=== PATIENT | female | born 1995 | race Caucasian/White ===

== ENCOUNTER 2019-03-11 20:52 | Emergency (ER) | payer BC ==
[2019-03-11] MEDS ORDERED: MORPHINE 4 MG/ML SYR ONE ×2 (21:39→23:49)
[2019-03-11] MEDS ORDERED: ONDANSETRON 4 MG/2 ML VIAL ONE (21:39)
[2019-03-11 21:54] LABS: Absolute Lymphocytes (CBC) 2.9 K/uL (0.7-4.9); Albumin 4.3 g/dL (3.4-5.0); Basophils % 0.7 % (0-1.3); Bilirubin Direct 0.1 mg/dL (0-0.2); Bilirubin Total 0.5 mg/dL (0.2-1.0); Hematocrit 41.8 % (36.0-45.0); Lymphocytes % 25.4 % (15.3-44.8); MPV 9.5 fL (7.6-11.3); Potassium 3.8 mmol/L (3.5-5.1); Protein, Total 8.2 g/dL (6.4-8.2); RBC Red Blood Cell Count 5.09 M/uL (3.86-4.86)
[2019-03-11 22:07] LABS: Urine Blood TRACE (NEG); Urine Glucose TRACE (NEG); Urine Protein 2+ (NEG); Urine Specific Gravity >1.030 (1.005-1.030); Urine pH 5.5 (5.0-7.0)
[2019-03-11] MEDS ORDERED: PROMETHAZINE 25 MG/ML VIAL ONE ×2 (22:14→23:48)
--- NOTE | 2019-03-11 23:34 | EDPHYS ---
Physician Documentation [facility] Name: Sharron Reyes Age: 23 yrs Sex: Female : 1995 Arrival Date: 03/11/2019 Time: 20:56 Bed 23 Private MD: ED Physician Ace Roldan HPI: 03/11 21:52 This 23 yrs old Female presents to ER via Ambulatory with complaints of jr8 Abdominal Pain. 21:52 The patient presents with abdominal pain in the upper abdomen. Onset: The jr8 symptoms/episode began/occurred acutely, today. The symptoms do not radiate. Associated signs and symptoms: Pertinent positives: nausea. The symptoms are described as sharp. Modifying factors: The symptoms are alleviated by nothing, the symptoms are aggravated by nothing. Severity of pain: At its worst the pain was moderate in the emergency department the pain is unchanged. The patient has not experienced similar symptoms in the past. The patient has not recently seen a physician. 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 - Social history:: Smoking status: Patient/guardian denies using tobacco. - Ebola Screening: : No symptoms or risks identified at this time. ROS: 21:52 Eyes: Negative for injury, pain, redness, and discharge, ENT: Negative for injury, jr8 pain, and discharge, Neck: Negative for injury, pain, and swelling, Cardiovascular: Negative for chest pain, palpitations, and edema, Respiratory: Negative for shortness of breath, cough, wheezing, and pleuritic chest pain, Back: Negative for injury and pain, MS/Extremity: Negative for injury and deformity, Skin: Negative for injury, rash, and discoloration, Neuro: Negative for headache, weakness, numbness, tingling, and seizure. 21:52 Abdomen/GI: Positive for abdominal pain, nausea, Negative for vomiting, diarrhea, abdominal distension, anorexia, dysphagia, hematemesis, black/tarry stool, rectal pain, rectal bleeding, bowel incontinence, flatulence. Exam: 21:52 Eyes: Pupils equal round and reactive to light, extra-ocular motions intact. Lids and jr8 lashes normal. Conjunctiva and sclera are non-icteric and not injected. Cornea within normal limits. Periorbital areas with no swelling, redness, or edema. ENT: Nares patent. No nasal discharge, no septal abnormalities noted. Tympanic membranes are normal and external auditory canals are clear. Oropharynx with no redness, swelling, or masses, exudates, or evidence of obstruction, uvula midline. Mucous membranes moist. Neck: Trachea midline, no thyromegaly or masses palpated, and no cervical lymphadenopathy. Supple, full range of motion without nuchal rigidity, or vertebral point tenderness. No Meningismus. Cardiovascular: Regular rate and rhythm with a normal S1 and S2. No gallops, murmurs, or rubs. Normal PMI, no JVD. No pulse deficits. Respiratory: Lungs have equal breath sounds bilaterally, clear to auscultation and percussion. No rales, rhonchi or wheezes noted. No increased work of breathing, no retractions or nasal flaring. Back: No spinal tenderness. No costovertebral tenderness. Full range of motion. Skin: Warm, dry with normal turgor. Normal color with no rashes, no lesions, and no evidence of cellulitis. MS/ Extremity: Pulses equal, no cyanosis. Neurovascular intact. Full, normal range of motion. Neuro: Awake and alert, GCS 15, oriented to person, place, time, and situation. Cranial nerves II-XII grossly intact. Motor strength 5/5 in all extremities. Sensory grossly intact. Cerebellar exam normal. Normal gait. 21:52 Abdomen/GI: Inspection: abdomen appears normal, Bowel sounds: active, all quadrants, Palpation: soft, in all quadrants, moderate abdominal tenderness, in the epigastric area, right upper quadrant and left upper quadrant, mass, is not appreciated, rebound tenderness, is not appreciated, voluntary guarding, is not appreciated, involuntary guarding, is not appreciated, no appreciated organomegaly, Indicators: McBurney's point is not tender, Meredith's sign is negative, Rovsing's sign is negative, Liver: tenderness, is not appreciated. Vital Signs: 21:02 Weight 106.59 kg; Height 5 ft. 7 in. (170.18 cm); la1 21:02 Pulse 102; Resp 16; Temp 98.1; Pulse Ox 100% on R/A; la1 21:04 BP 147 / 78; la1 21:02 Body Mass Index 36.81 (106.59 kg, 170.18 cm) la1 MDM: 21:19 Patient medically screened. [facility] 23:31 Data reviewed: vital signs, nurses notes, lab test result(s), radiologic studies, CT jr8 scan. Data interpreted: Pulse oximetry: on room air is 100 %. Interpretation: normal. Counseling: I had a detailed discussion with the patient and/or guardian regarding: the historical points, exam findings, and any diagnostic results supporting the discharge/admit diagnosis, lab results, radiology results, the need for outpatient follow up, a family practitioner, to return to the emergency department if symptoms worsen or persist or if there are any questions or concerns that arise at home. Response to treatment: the patient's symptoms have markedly improved after treatment, patient is well hydrated. 23:31 Special discussion: Based on the patient's Hx, exam, and Dx evaluation, there is no [facility] indication for emergent surgery or inpatient Tx. It is understood by the patient/guardian that if the Sx's persist or worsen they need to return immediately for re-evaluation. 03/11 21:19 Order name: Basic Metabolic Panel; Complete Time: 21:57 [facility] 03/11 21:19 Order name: CBC with Diff; Complete Time: 21:57 [facility] 03/11 21:19 Order name: Creatinine for Radiology; Complete Time: 21:53 [facility] 03/11 21:19 Order name: Hepatic Function; Complete Time: 21:57 [facility] 03/11 21:19 Order name: Lipase; Complete Time: 21:57 [facility] 03/11 21:26 Order name: Urine Dipstick--Ancillary (enter results) [facility] 03/11 21:19 Order name: IV Saline Lock; Complete Time: 21:41 [facility] 03/11 21:26 Order name: Urine --Ancillary (enter results) [facility] 03/11 21:48 Order name: CT Abd/Pelvis - IV Contrast Only [facility] 03/11 21:19 Order name: Labs collected and sent; Complete Time: 21:41 [facility] Administered Medications: 21:41 Drug: morphine 4 mg Route: IVP; Site: right antecubital; co1 22:19 Follow up: Response: No adverse reaction; Pain is decreased la1 21:41 Drug: Zofran 4 mg Route: IVP; Site: right antecubital; la1 22:20 Follow up: Response: No adverse reaction la1 22:19 Drug: Phenergan 12.5 mg Route: IVP; Site: right antecubital; la1 23:46 Drug: Promethazine 12.5 mg Route: IVP; Site: right antecubital; tr5 03/12 00:12 Follow up: Response: Marked relief of symptoms tr5 03/11 23:56 Drug: morphine 4 mg {Note: RASS:0.} Route: IVP; Site: right antecubital; tr5 03/12 00:11 Follow up: Response: Medication administered at discharge. tr5 Disposition: 04:18 Co-signature as Attending Physician, Ace Roldan MD I agree with the assessment and tw4 plan of care. Disposition: 03/11/19 23:32 Discharged to Home. Impression: Acute Enteritis. - Condition is Stable. - Discharge Instructions: Nausea and Vomiting, Adult, Viral Gastroenteritis, Adult. - Prescriptions for Bentyl 20 mg Oral Tablet - take 1 tablet by ORAL route every 6 hours As needed; 20 tablet. promethazine 25 mg Oral Tablet - take 1 tablet by ORAL route every 6 hours As needed; 20 tablet. - Medication Reconciliation Form, Thank You Letter, Antibiotic Education, Prescription Opioid Use form. - Follow up: Private Physician; When: 2 - 3 days; Reason: Recheck today's complaints, Continuance of care, Re-evaluation by your physician. - Problem is new. - Symptoms have improved. Signatures: Dispatcher [employer] EDME Edis Soni PA PA jr8 Frederick Rodriguez RN RN la1 Ace Roldan MD MD tw4 Jonas Vega RN RN tr5 Corrections: (The following items were deleted from the chart) 00:14 03/11 23:32 03/11/2019 23:32 Discharged to Home. Impression: Acute Enteritis. Condition tr5 is Stable. Forms are Medication Reconciliation Form, Thank You Letter, Antibiotic Education, Prescription Opioid Use. Follow up: Private Physician; When: 2 - 3 days; Reason: Recheck today's complaints, Continuance of care, Re-evaluation by your physician. Problem is new. Symptoms have improved. jr8
--- NOTE | 2019-03-11 23:34 | ER ---
Nurse's Notes [facility] Name: Sharron Reyes Age: 23 yrs Sex: Female : 1995 Arrival Date: 03/11/2019 Time: 20:56 Bed 23 Private MD: Diagnosis: Acute Enteritis Presentation: 03/11 21:03 Presenting complaint: Patient states: abd pain since yesterday, reports diarrhea. la1 Transition of care: patient was not received from another setting of care. Onset of symptoms was March 11, 2019. Risk Assessment: Do you want to hurt yourself or someone else? Patient reports no desire to harm self or others. Initial Sepsis Screen: Does the patient meet any 2 criteria? No. Patient's initial sepsis screen is negative. Does the patient have a suspected source of infection? No. Patient's initial sepsis screen is negative. Care prior to arrival: None. 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 - Social history:: Smoking status: Patient/guardian denies using tobacco. - Ebola Screening: : No symptoms or risks identified at this time. Screenin:42 Abuse screen: Denies threats or abuse. Abuse screen: Denies threats or abuse. la1 Nutritional screening: No deficits noted. Tuberculosis screening: No symptoms or risk factors identified. Fall Risk None identified. Assessment: 21:41 General: Appears in no apparent distress. Behavior is calm, cooperative. Pain: la1 Complains of pain in epigastric area, right upper quadrant and left upper quadrant. Neuro: Level of Consciousness is awake, alert, obeys commands, Oriented to person, place, time, situation. Cardiovascular: Capillary refill < 3 seconds Patient's skin is warm and dry. Respiratory: Airway is patent Respiratory effort is even, unlabored, Respiratory pattern is regular, symmetrical, Breath sounds are clear bilaterally. GI: Abdomen is non-distended, obese, Bowel sounds present X 4 quads. Abd is soft X 4 quads Abdomen is tender to palpation in epigastric area, right upper quadrant and left upper quadrant. Vital Signs: 21:02 Weight 106.59 kg; Height 5 ft. 7 in. (170.18 cm); la1 21:02 Pulse 102; Resp 16; Temp 98.1; Pulse Ox 100% on R/A; la1 21:04 BP 147 / 78; la1 21:02 Body Mass Index 36.81 (106.59 kg, 170.18 cm) la1 ED Course: 20:56 Patient arrived in ED. cf2 21:04 Triage completed. la1 21:04 Arm band placed on right wrist. la1 21:07 Ace Roldan MD is Attending Physician. tw4 21:07 Edis Soni PA is PHCP. jr8 21:23 Frederick Rodriguez, DOMO is Primary Nurse. la1 21:41 No provider procedures requiring assistance completed. Inserted saline lock: 18 gauge la1 in right antecubital area, using aseptic technique. Blood collected. 21:42 Patient has correct armband on for positive identification. la1 22:44 CT Abd/Pelvis - IV Contrast Only In Process Unspecified. EDMS 03/12 00:10 Patient did not have IV access during this emergency room visit. tr5 Administered Medications: 03/11 21:41 Drug: morphine 4 mg Route: IVP; Site: right antecubital; la1 22:19 Follow up: Response: No adverse reaction; Pain is decreased la1 21:41 Drug: Zofran 4 mg Route: IVP; Site: right antecubital; la1 22:20 Follow up: Response: No adverse reaction la1 22:19 Drug: Phenergan 12.5 mg Route: IVP; Site: right antecubital; la1 23:46 Drug: Promethazine 12.5 mg Route: IVP; Site: right antecubital; tr5 03/12 00:12 Follow up: Response: Marked relief of symptoms tr5 03/11 23:56 Drug: morphine 4 mg {Note: RASS:0.} Route: IVP; Site: right antecubital; tr5 03/12 00:11 Follow up: Response: Medication administered at discharge. tr5 Outcome: 03/11 23:32 Discharge ordered by . jr8 03/12 00:10 Discharged to home via wheelchair, with family. tr5 Condition: stable Discharge instructions given to patient, family, Instructed on discharge instructions, follow up and referral plans. medication usage, Demonstrated understanding of instructions, follow-up care, medications, Prescriptions given X 2. 00:14 Patient left the ED. tr5 Signatures: Dispatcher [employer] EDMS Edis Soni PA PA jr8 Frederick Rodriguez RN RN la1 Ace Roldan MD MD tw4 Jonas Vega RN RN tr5 Emily Bravo 2
[2019-03-12 02:49] VITALS: TEMP 98.1; O2SAT 100
[2019-03-12 02:50] VITALS: BP 147/78
--- OUTSIDE RECORDS SUMMARY | 2019-03-12 07:20 | XMS REPORT ---
:1995 Author Organization eClinicalWorks Care Team Providers Name Role Phone NyeReva osborney Provider Role Unavailable Allergies, Adverse Reactions, Alerts Substance Reaction Event Type Saxenda diarrhea Drug Allergy Contrave migraine CONRAD's Drug Allergy Wellbutrin CONRAD's Drug Allergy Problems Problem Type Condition Code Onset Dates Condition Status Problem Primary insomnia F51.01 Active Problem Encounter for surveillance of Z30.46 Active implantable subdermal contraceptive Problem Depression F32.9 Active Assessment Fatigue, unspecified type R53.83 Active Assessment Abdominal pain, LUQ R10.12 Active Problem Obesity (BMI 35.0-39.9 without E66.9 Active comorbidity) Assessment Primary insomnia F51.01 Active Medications Medication Code Code Instructions Start End Date Status Dosage System Date Multivitamin [facility] 99908123637 - Orally Active not Adult defined Results No Known Results Summary Purpose eClinicalWorks Submission
--- OUTSIDE RECORDS SUMMARY | 2019-03-12 07:20 | XMS REPORT ---
:1995 Author Organization eClinicalWorks Care Team Providers Name Role Phone Oneyda Rios Provider Role Unavailable Allergies No Known Allergies Problems Problem Type Condition Code Onset Dates Condition Status Problem Primary insomnia F51.01 Active Problem Encounter for surveillance of Z30.46 Active implantable subdermal contraceptive Problem Depression F32.9 Active Problem Obesity (BMI 35.0-39.9 without E66.9 Active comorbidity) Medications Medication Code Code Instructions Start End Status Dosage System Date Date Levothyroxine [facility] 63868498500 25 MCG Orally July Active 1 tablet Sodium Once a day 2017 on an empty stomach in the morning Results No Known Results Summary Purpose eClinicalWorks Submission
--- OUTSIDE RECORDS SUMMARY | 2019-03-12 07:21 | XMS REPORT ---
:1995 Author Organization eClinicalWorks Care Team Providers Name Role Phone LaramieReva osborney Provider Role Unavailable Allergies No Known Allergies Problems Problem Type Condition Code Onset Dates Condition Status Problem Obesity (BMI 35.0-39.9 without E66.9 Active comorbidity) Problem Encounter for surveillance of Z30.46 Active implantable subdermal contraceptive Problem Generalized abdominal pain R10.84 Active Problem PCOS (polycystic ovarian syndrome) E28.2 Active Problem Increased thirst R63.1 Active Problem Depression F32.9 Active Problem Primary insomnia F51.01 Active Problem Acquired hypothyroidism E03.9 Active Problem Type 2 diabetes mellitus without E11.9 Active complication, without long-term current use of insulin Medications No Known Medications Results No Known Results Summary Purpose eClinicalWorks Submission
--- OUTSIDE RECORDS SUMMARY | 2019-03-12 07:21 | XMS REPORT ---
:1995 Author Organization eClinicalWorks Care Team Providers Name Role Phone Oneyda Rios Provider Role Unavailable Allergies, Adverse Reactions, Alerts Substance Reaction Event Type Saxenda diarrhea Drug Allergy Contrave migraine CONRAD's Drug Allergy Wellbutrin CONRAD's Drug Allergy Problems Problem Type Condition Code Onset Dates Condition Status Problem Primary insomnia F51.01 Active Problem Encounter for surveillance of Z30.46 Active implantable subdermal contraceptive Problem Depression F32.9 Active Assessment RUQ abdominal pain R10.11 Active Assessment Elevated glucose R73.09 Active Problem Obesity (BMI 35.0-39.9 without E66.9 Active comorbidity) Assessment Primary insomnia F51.01 Active Medications Medication Code Code Instructions Start End Status Dosage System Date Date Amitriptyline HCl [facility] 57267830562 25 MG Orally August 31, Active 1 tablet Once a day at 2018 bedtime Levothyroxine ND 45047833752 25 MCG Orally July Active 1 tablet Sodium Once a day 2017 on an empty stomach in the morning Multivitamin ND 18655674378 - Orally Active not Adult defined Results No Known Results Summary Purpose eClinicalWorks Submission
--- OUTSIDE RECORDS SUMMARY | 2019-03-12 07:21 | XMS REPORT ---
:1995 Author Organization eClinicalWorks Care Team Providers Name Role Phone Oneyda Rios Provider Role Unavailable Allergies, Adverse Reactions, Alerts Substance Reaction Event Type Saxenda diarrhea Drug Allergy Contrave migraine CONRAD's Drug Allergy Wellbutrin CONRAD's Drug Allergy Levothyroxine Sodium excessive sweating Drug Allergy Problems Problem Type Condition Code Onset Dates Condition Status Problem Obesity (BMI 35.0-39.9 without E66.9 Active comorbidity) Problem Encounter for surveillance of Z30.46 Active implantable subdermal contraceptive Assessment Upper respiratory tract infection, J06.9 Active unspecified type Assessment Cough R05 Active Problem Generalized abdominal pain R10.84 Active Problem PCOS (polycystic ovarian syndrome) E28.2 Active Problem Increased thirst R63.1 Active Problem Depression F32.9 Active Problem Primary insomnia F51.01 Active Problem Acquired hypothyroidism E03.9 Active Problem Type 2 diabetes mellitus without E11.9 Active complication, without long-term current use of insulin Medications Medication Code Code Instructions Start End Status Dosage System Date Date Nexplanon [facility] 40567387325 68 MG Active as directed Subcutaneous Multivitamin [facility] 17043905359 - Orally Active not defined Adult Pseudoeph-[place] ND 25491503371 30-2-10 MG/5ML Apr 17Apr 27, Active 10 ml as en-DM Orally Four 2017 2017 needed times a day Amitriptyline ND 33249086157 25 MG Orally Active 1 tablet HCl Once a day at bedtime [place] Thyroid ND 78010586949 60 MG Orally Active 1 tablet on Once a day an empty stomach MetFORMIN HCl ER ND 54444234351 750 MG Orally Active 1 tablet Once a day with evening meal Azithromycin ND 52770605647 250 MG Orally Apr 17Apr 22, Active 2 tablets Once a day 2017 2017 on the first day, then 1 tablet daily for 4 days Flonase ND 41451492760 50 MCG/ACT Active 2 sprays Nasally Once a each day nostril prn Results Name Result Date Reference Range Unit Abnormality Flag Rapid Strep FLU TEST ----B N [id number] ----A N [id number] Summary Purpose eClinicalWorks Submission
--- OUTSIDE RECORDS SUMMARY | 2019-03-12 07:21 | XMS REPORT ---
[...] of Z30.46 Active implantable subdermal contraceptive Assessment Increased thirst R63.1 Active Assessment Primary insomnia F51.01 Active Assessment Type 2 diabetes mellitus without E11.9 Active complication, without long-term current use of insulin Problem Generalized abdominal pain R10.84 Active Problem PCOS (polycystic ovarian syndrome) E28.2 Active Problem Increased thirst R63.1 Active Problem Depression F32.9 Active Problem Primary insomnia F51.01 Active Problem Acquired hypothyroidism E03.9 Active Problem Type 2 diabetes mellitus without E11.9 Active complication, without long-term current use of insulin Medications Medication Code Code Instructions Start End Status Dosage System Date Date MetFORMIN HCl ER ND 34644273873 750 MG Orally October 17, Active 1 tablet Once a day 2017 with evening meal Nexplanon ND 75697973644 68 MG Active as directed Subcutaneous Multivitamin ND 15123633141 - Orally Active not defined Adult [place] Thyroid ND 15141117069 60 MG Orally Active 1 tablet on Once a day an empty stomach Flonase ND 01443821067 50 MCG/ACT Active 2 sprays Nasally Once a each day nostril prn Amitriptyline ND 41186397228 25 MG Orally Active 1 tablet HCl Once a day at bedtime Results Name Result Date Reference Range Unit Abnormality Flag COMPREHENSIVE METABOLIC PANEL(CMP) ----ALBUMIN/GLOBULI 1.6 [id number] 1.0-2.5 (calc) N N RATIO ----GLOBULIN 2.9 [id number] 1.9-3.7 g/dL (calc) N ----ALKALINE 35 [id number] 33-115 U/L N PHOSPHATASE ----BILIRUBIN, 0.8 [id number] 0.2-1.2 mg/dL N TOTAL ----CHLORIDE 103 [id number] 98-110 mmol/L N ----ALT 56 [id number] 6-29 U/L H ----POTASSIUM 4.8 [id number] 3.5-5.3 mmol/L N ----AST 29 [id number] 10-30 U/L N ----SODIUM 138 [id number] 135-146 mmol/L N ----BUN/CREATININE NOT APPLICABLE 20180202 6-22 (calc) RATIO ----eGFR 143 [id number] > OR=60 mL/min/1.73 N [place] m2 ----CALCIUM 9.9 [id number] 8.6-10.2 mg/dL N ----CARBON DIOXIDE 26 [id number] 20-32 mmol/L N ----ALBUMIN 4.7 [id number] 3.6-5.1 g/dL N ----PROTEIN, TOTAL 7.6 [id number] 6.1-8.1 g/dL N ----GLUCOSE 107 [id number] 65-99 mg/dL H ----UREA NITROGEN 10 [id number] 7-25 mg/dL N (BUN) ----CREATININE 0.66 [id number] 0.50-1.10 mg/dL N ----eGFR NON-AFR. 124 [id number] > OR=60 mL/min/1.73 N [place] [address] HEMOGLOBIN A1c ----HEMOGLOBIN A1c 5.8 [id number] <5.7 % of total H Hgb Summary Purpose eClinicalWorks Submission
--- OUTSIDE RECORDS SUMMARY | 2019-03-12 07:21 | XMS REPORT ---
:1995 Author Organization eClinicalWorks Care Team Providers Name Role Phone Oneyda Rios Provider Role Unavailable Allergies No Known Allergies Problems Problem Type Condition Code Onset Dates Condition Status Problem Primary insomnia F51.01 Active Problem Depression F32.9 Active Problem Acquired hypothyroidism E03.9 Active Problem Encounter for surveillance of Z30.46 Active implantable subdermal contraceptive Problem Obesity (BMI 35.0-39.9 without E66.9 Active comorbidity) Medications Medication Code Code Instructions Start End Status Dosage System Date Date [place] Thyroid NDC 99924401095 60 MG Orally October 17, Active 1 tablet Once a day 2017 on an empty stomach MetFORMIN HCl NDC 50093396695 500 MG Orally October 17, Active 1 tablet ER Once a day 2017 with evening meal Results No Known Results Summary Purpose eClinicalWorks Submission
--- OUTSIDE RECORDS SUMMARY | 2019-03-12 07:21 | XMS REPORT ---
:1995 Author Organization eClinicalWorks Care Team Providers Name Role Phone Waldo Martin Provider Role Unavailable Allergies, Adverse Reactions, Alerts Substance Reaction Event Type Saxenda diarrhea Drug Allergy Contrave migraine CONRAD's Drug Allergy Wellbutrin [facility]'s Drug Allergy Levothyroxine Sodium excessive sweating Drug Allergy Problems Problem Type Condition Code Onset Dates Condition Status Assessment Generalized abdominal pain R10.84 Active Problem Encounter for surveillance of Z30.46 Active implantable subdermal contraceptive Assessment PCOS (polycystic ovarian syndrome) E28.2 Active Assessment Obesity (BMI 35.0-39.9 without E66.9 Active comorbidity) Problem Generalized abdominal pain R10.84 Active Problem Acquired hypothyroidism E03.9 Active Problem PCOS (polycystic ovarian syndrome) E28.2 Active Problem Primary insomnia F51.01 Active Problem Obesity (BMI 35.0-39.9 without E66.9 Active comorbidity) Problem Type 2 diabetes mellitus without E11.9 Active complication, without long-term current use of insulin Problem Depression F32.9 Active Medications Medication Code Code Instructions Start End Status Dosage System Date Date Multivitamin [facility] 77838663987 - Orally Active not defined Adult Amitriptyline ND 82207834811 25 MG Orally Active 1 tablet HCl Once a day at bedtime Nexplanon ND 86778377812 68 MG Active as directed Subcutaneous Flonase ND 87159105023 50 MCG/ACT Active 2 sprays Nasally Once a each day nostril prn [place] Thyroid ND 72322944861 30 MG Orally October 03, Active 1 tablet on Once a day 2017 an empty stomach Levonorgestrel-E [facility] 66278846256 0.1-20 MG-MCG Active 1 tablet thinyl Estrad Orally Once a day [place] Thyroid [facility] 32085910477 60 MG Orally October 17, Active 1 tablet on Once a day 2017 an empty stomach MetFORMIN HCl ER ND 69625800058 500 MG Orally October 17, Active 1 tablet Once a day 2017 with evening meal PredniSONE ND 12408391075 20 MG Orally Active 1 tablet BID Results Name Result Date Reference Range Unit Abnormality Flag URINALYSIS AUTO W/O SCOPE (75693) ----NIT neg [id number] ----URO 0.2 20171214 ----PROTEIN neg [id number] ----pH 5.5 20171214 ----BLO neg [id number] ----GLUCOSE neg [id number] ----ANGEL neg [id number] ----BILIRUBIN neg [id number] ----KETONES neg [id number] ----SPECIFIC GRAVITY 1.030 [id number] Summary Purpose eClinicalWorks Submission
--- OUTSIDE RECORDS SUMMARY | 2019-03-12 07:21 | XMS REPORT ---
:1995 Author Organization eClinicalWorks Care Team Providers Name Role José Luis Mooney Yessenia Provider Role Unavailable Allergies, Adverse Reactions, Alerts Substance Reaction Event Type Saxenda diarrhea Drug Allergy Contrave migraine CONRAD's Drug Allergy Wellbutrin [facility]'s Drug Allergy Problems Problem Type Condition Code Onset Dates Condition Status Problem Primary insomnia F51.01 Active Problem Encounter for surveillance of Z30.46 Active implantable subdermal contraceptive Problem Depression F32.9 Active Problem Obesity (BMI 35.0-39.9 without E66.9 Active comorbidity) Assessment Acute sinusitis, recurrence not J01.90 Active specified, unspecified location Medications Medication Code Code Instructions Start End Status Dosage System Date Date Multivitamin [facility] 55976990103 - Orally Active not Adult defined Flonase [facility] 18501556499 50 MCG/ACT Active 2 sprays Nasally Once a each day nostril prn Levothyroxine ND 27691425356 25 MCG Orally July Active 1 tablet Sodium Once a day 2017 on an empty stomach in the morning PredniSONE ND 19108120744 20 MG Orally Active 1 tablet BID Amitriptyline HCl ND 67492354558 25 MG Orally August 31, Active 1 tablet Once a day at 2018 bedtime Results No Known Results Summary Purpose eClinicalWorks Submission
--- OUTSIDE RECORDS SUMMARY | 2019-03-12 07:21 | XMS REPORT ---
:1995 Author Organization eClinicalWorks Care Team Providers Name Role Phone Oneyda Rios Provider Role Unavailable Allergies, Adverse Reactions, Alerts Substance Reaction Event Type Saxenda diarrhea Drug Allergy Contrave migraine CONRAD's Drug Allergy Wellbutrin [facility]'s Drug Allergy Levothyroxine Sodium excessive sweating Drug Allergy Problems Problem Type Condition Code Onset Dates Condition Status Assessment Primary insomnia F51.01 Active Assessment Type 2 diabetes mellitus without E11.9 Active complication, without long-term current use of insulin Problem Type 2 diabetes mellitus without E11.9 Active complication, without long-term current use of insulin Problem Depression F32.9 Active Problem Acquired hypothyroidism E03.9 Active Problem Encounter for surveillance of Z30.46 Active implantable subdermal contraceptive Problem Primary insomnia F51.01 Active Problem Obesity (BMI 35.0-39.9 without E66.9 Active comorbidity) Medications Medication Code Code Instructions Start End Status Dosage System Date Date Flonase [facility] 00324562911 50 MCG/ACT Active 2 sprays Nasally Once a each day nostril prn Amitriptyline HCl ND 35657706375 25 MG Orally August 31, Active 1 tablet Once a day at 2018 bedtime [place] Thyroid ND 04664194006 60 MG Orally October 17, Active 1 tablet Once a day 2017 on an empty stomach Multivitamin ND 52920499769 - Orally Active not Adult defined [place] Thyroid ND 65168757863 30 MG Orally October 03, Active 1 tablet Once a day 2018 on an empty stomach PredniSONE ND 73690009607 20 MG Orally Active 1 tablet BID MetFORMIN HCl ER ND 31929722625 500 MG Orally October 17, Active 1 tablet Once a day 2018 with evening meal Results Name Result Date Reference Range Unit Abnormality Flag GLUCOSE FINGER ----Result 101 [id number] Summary Purpose eClinicalWorks Submission
--- OUTSIDE RECORDS SUMMARY | 2019-03-12 07:21 | XMS REPORT ---
:1993 Author Organization eClinicalWorks Care Team Providers Name Role Phone Attala, Oneyda Provider Role Unavailable Allergies, Adverse Reactions, Alerts Substance Reaction Event Type Saxenda diarrhea Drug Allergy Contrave migraine CONRAD's Drug Allergy Wellbutrin [facility]'s Drug Allergy Levothyroxine Sodium excessive sweating Drug Allergy Problems Problem Type Condition Code Onset Dates Condition Status Assessment Type 2 diabetes mellitus without E11.9 Active complication, without long-term current use of insulin Problem Encounter for surveillance of Z30.46 Active implantable subdermal contraceptive Assessment Primary insomnia F51.01 Active Assessment Acquired hypothyroidism E03.9 Active Assessment Depression F32.9 Active Problem Generalized abdominal pain R10.84 Active Problem Acquired hypothyroidism E03.9 Active Problem PCOS (polycystic ovarian syndrome) E28.2 Active Problem Primary insomnia F51.01 Active Problem Obesity (BMI 35.0-39.9 without E66.9 Active comorbidity) Problem Type 2 diabetes mellitus without E11.9 Active complication, without long-term current use of insulin Problem Depression F32.9 Active Medications Medication Code Code Instructions Start End Status Dosage System Date Date [place] Thyroid [facility] 75626395902 30 MG Orally October 03, Active 1 tablet on Once a day 2017 an empty stomach Nexplanon ND 26327361427 68 MG Active as directed Subcutaneous Levonorgestrel-E [facility] 60900242926 0.1-20 MG-MCG Active 1 tablet thinyl Estrad Orally Once a day MetFORMIN HCl ER ND 63503643400 750 MG Orally October 17, Active 1 tablet Once a day 2017 with evening meal Flonase ND 12888002347 50 MCG/ACT Active 2 sprays Nasally Once a each day nostril prn Amitriptyline ND 89343435248 25 MG Orally Active 1 tablet HCl Once a day at bedtime Multivitamin ND 46513795003 - Orally Active not defined Adult [place] Thyroid ND 42336123068 60 MG Orally October 17, Active 1 tablet on Once a day 2018 an empty stomach PredniSONE ND 27579982831 20 MG Orally Active 1 tablet BID Results No Known Results Summary Purpose eClinicalWorks Submission
--- OUTSIDE RECORDS SUMMARY | 2019-03-12 07:21 | XMS REPORT ---
[...] F32.9 Active Problem Acquired hypothyroidism E03.9 Active Assessment Acquired hypothyroidism E03.9 Active Assessment Primary insomnia F51.01 Active Problem Encounter for surveillance of Z30.46 Active implantable subdermal contraceptive Problem Obesity (BMI 35.0-39.9 without E66.9 Active comorbidity) Medications Medication Code Code Instructions Start End Status Dosage System Date Date Amitriptyline HCl ND 24185281854 25 MG Orally August 31, Active 1 tablet Once a day at 2018 bedtime Flonase ND 25486047610 50 MCG/ACT Active 2 sprays Nasally Once a each day nostril prn Levothyroxine ND 74833852742 25 MCG Orally July Active 1 tablet Sodium Once a day 2017 on an empty stomach in the morning Multivitamin ND 28316720073 - Orally Active not Adult defined PredniSONE ND 71129562824 20 MG Orally Active 1 tablet BID [place] Thyroid ND 23803683651 30 MG Orally October 03, Active 1 tablet Once a day 2017 on an empty stomach Results No Known Results Summary Purpose eClinicalWorks Submission
--- NOTE | 2019-03-12 10:08 | RAD REPORT ---
EXAM DESCRIPTION: CT ABDOMEN AND PELVIS WITH CONTRAST CLINICAL HISTORY: Upper abdominal pain. COMPARISON: 12/06/2016 TECHNIQUE: CT of the abdomen and pelvis performed following IV administration of iodinated contrast. FINDINGS: Lung Bases: The visualized lung bases are clear. Bones: Bilateral L5 pars defects with grade 1 spondylolisthesis of L5 over S1. Abdomen: Liver: The liver has normal size and decreased density. No intrahepatic mass or biliary dilatation. Gallbladder: Prior cholecystectomy. Spleen, Pancreas, and Adrenal Glands: The spleen, pancreas, and adrenal glands are unremarkable. Kidneys: The kidneys have normal size without evidence of solid mass or hydronephrosis. Vasculature: The aorta and IVC have normal caliber and position. The portal vein is patent. The pro ximal visceral and renal arteries are patent. Stomach: The stomach and duodenum have normal course. Other: No free intraperitoneal air. Small fat-containing umbilical hernia. No free fluid or lymphad enopathy. Pelvis: Bladder: Urinary bladder is unremarkable. Bowel: No dilated loops of large or small bowel. The descending colon is decompressed. Mild wall th ickening of loops of small bowel in the mid abdomen. Appendix: Normal appendix. Pelvis: Uterus is not enlarged. IMPRESSION: 1. Findings compatible with mild nonspecific enteritis which may be of infectious or inf lammatory etiology. 2. Hepatic steatosis. This exam was performed according to our departmental dose-optimization program, which includes autom ated exposure control, adjustment of the mA and/or kV according to patient size and/or use of iterati ve reconstruction technique. Electronically signed by: Issac Rubio 03/11/2019 11:13 PM LEAD PROGRAMMER ANALYST Due to temporary technical issues with the PACS/Fluency reporting system, reports are being signed by the in house radiologist as a courtesy to ensure prompt reporting. The interpreting radiologist is f ully responsible for the content of the report.
== END 2019-03-12 00:14 | disposition home or self-care (01) ==
LOC: ER 20:52
DX: K52.9 Noninfective gastroenteritis and colitis, unspecified (principal); E11.9 Type 2 diabetes mellitus without complications
CPT/HCPCS: 85025; 80048; 36415; 81025; 80076; 81003; 83690; 74177; 96375; 96374; 99284; Q9967; J2550 ×2; J2405

== ENCOUNTER 2020-08-18 10:30 | Emergency (ER) | payer OTHER ==
--- OUTSIDE RECORDS SUMMARY | 2020-08-18 10:33 | XMS REPORT | Continuity of Care Document ---
:1995 Author Organization [facility] t Address [address] [place] [address] Care Team Providers Name Role Phone Doctor Unassigned, Name Attending Clinician Unavailable Arpit ARAGON, Gene Attending Clinician Problems This patient has no known problems. Allergies, Adverse Reactions, Alerts Allergy Allergy Status Severity Reaction(s) Onset Inactive Treating Comm ents Source Name Type Date Date Clinician Thomas Adverse [facility] diarrhea [facility] Contrave Adverse Active migraine [facility] Wellbutr Adverse Active [facility] and [facility] Reaction worsening [facility] depression [facility]ics [place] Adverse Active excessive [facility] oxine Reaction sweating [facility] Sodium [facility]ics Quetiapi Adverse Active Info Not [facility] Reaction Available [facility] Fumarate [facility] Medications Ordered Filled Start Stop Current Ordering Indication Dosage Frequency Signature Comments Components Source Medication Medication Date Date Medication? Clinician (SIG) Name Name Diclofenac Diclofenac 2020- No [place] [address] [facility] Sodium Sodium 9 1107 Frio [facility] Farxiga Farxiga 2020-0 2020- No [place] 1 [facility] 00 :[facility] l Outpat[facility] ent Clinics MetFORMIN MetFORMIN Yes [place] TAKE [address] HCl ER HCl ER Frio TABLETS BY Luke [facility] - MOUTH WITH Memoria EVENING l MEAL ONCE Outpati A DAY ent Clinics [facility] Yes [place] [address] [facility] Thyroid Thyroid [place] on an [facility] - empty [facility] stomach l Outpati ent Clinics Nexplanon Nexplanon Yes [place] as [facility] directed [facility] Yes [place] [address] [facility] Frio [facility] Procedures This patient has no known procedures. Encounters Start End Encounter Admission Attending Care Care Encounter Source Date/Time Date/Time Type Type Clinicians Facility Department ID 2020-08-11 2020-08-11 [facility] [id number] 2020-08-06 2020-08-06 [facility] [id number] [facility] 2020-08-05 2020-08-05 [facility] [id number] [facility] 2020-07-15 2020-07-15 [facility] [id number] [facility] 2020-06-26 2020-06-26 [facility] [id number] [facility] 2020-06-11 2020-06-11 [facility] [id number] [facility] 2020-05-14 2020-05-14 [facility] [id number] [facility] 2020-05-13 2020-05-13 [facility] [id number] [facility] 2020-05-13 2020-05-13 [facility] [id number] [facility] 2020-03-20 2020-03-20 [facility] [id number] [facility] 2020-01-04 2020-01-04 [facility] [id number] [facility] [address] 10:40:00 10:40:00 [facility] [place] [facility] Out[facility] Clinics 2020-01-03 2020-01-03 [facility] [id number] [facility] 15:57:00 15:57:00 t [employer] Medicine l Medicine Outpati ent Clinics 2019-12-31 2019-12-[address] [id number] [facility] 13:09[facility]00 13:09:[facility] Outpati ent Clinics 2019-12-18 2019-12-18 [facility] [id number] 10:09:00 10:09:00 [facility] Medicine Medicine Outpati ent Clinics 2019-12-05 2019-12-05 Orders Doctor SENIOR [id number] 00:00:00 00:00:00 Only Unassigned, OSMAR [id number] Annabella [facility] [id number] 2019-11-22 2019-11-22 [facility] [id number] 14[facility]00:00 14:00:00 [facility] [place] [facility] Outpat[facility] ent Clinics 2019-11-19 2019-11-19 [facility] [id number] [address] 10:26:00 10:26:00 [facility] [place] [facility] Medicine Outpati ent Clinics 2019-11-16 2019-11-16 [facility] [id number] 14:51:00 14:51:00 [facility] Medicine Outpati ent Clinics 2019-11-07 2019-11-07 [facility] [id number] 08:40:00 08:40:00 [facility] Outpati ent Clinics 2019-10-15 2019-10-15 [facility] [id number] [facility] 00[facility]00 [facility] Outpati ent Clinics 2019-09-28 2019-09-28 [facility] [id number] 14:53:00 14:53:00 [facility] Outpati ent Clinics 2019-09-26 2019-09-26 [facility] [id number] 08:20:00 08:20:00 [facility] Outpat[facility] ent Clinics 2019-06-22 2019-06-22 [facility] [id number] 14:44:54 16:11:48 Visit Carlos Shoemaker [id number] Pho[facility] [id number] [id number] [address] 2019-06-20 2019-06-20 [facility] [id number] 08[facility]00:00 08:00:00 [facility] Outpat[facility] ent Clinics 2019-05-08 2019-05-08 [facility] [id number] 11:45:00 11:45:00 [facility] Outpati ent Clinics 2019-05-08 2019-05-08 [facility] [id number] 10[facility]35:00 10:35:00 [facility] Outpati ent Clinics 2019-04-19 2019-04-19 [facility] [id number] 19:20:00 19:20:00 [facility] [place] [facility] Medicine Outpati ent Clinics 2019-04-18 2019-04-18 [facility] [id number] 10:40:00 10:40:00 t [facility] Medicine Outpati ent Clinics 2019-04-11 2019-04-11 [facility] [id number] [address] 10:34:00 10:34:00 [facility] [place] [facility] Medicine Outpati ent Clinics 2019-03-20 2019-03-20 [facility] [id number] 08:00:00 08:00:00 t [facility] Medicine Outpati ent Clinics 2018-04-17 2018-04-17 [facility] [id number] 11:00:00 11:00:00 t [facility] Medicine Outpati ent Clinics 2018-02-07 2018-02-07 [facility] [id number] 15:14:00 15:14:00 [facility] [place] [facility] Medicine Outpati ent Clinics 2018-02-02 2018-02-02 [facility] [id number] [address] 09:00:00 09:00:00 [facility] [place] [facility] Medicine Outpati ent Clinics 2017-12-29 2017-12-29 [facility] [id number] [facility] 09:00:00 09:00:00 [facility] [place] [facility] Medicine Outpati ent Clinics 2017-12-14 2017-12-14 [facility] [id number] 15:30:00 15:30:00 [facility] Clin[facility] 2017-11-03 2017-11-03 [facility] [id number] 10:30:00 10:30:00 [facility] [place] [facility] Medicine Outpati ent Clinics 2017-10-17 2017-10-17 [facility] [id number] 14:59:00 14:59:00 t [facility] Outpat[facility] ent Clinics 2017-10-03 2017-10-03 [facility] [id number] 15:45:00 15:45:00 t [facility] Outpati ent Clinics 2017-09-17 2017-09-17 [facility] [id number] 12:45:00 12:45:00 [facility] Outpati [facility] Clinics 2017-08-31 2017-08-31 [facility] [id number] 09:00:00 09:00:00 t [facility] Outpati ent Clinics 2017-08-22 2017-08-22 [facility] [id number] 18:39:00 18:39:00 t [facility] Outpati ent Clinics 2017-08-17 2017-08-17 [facility] [id number] 10:30:00 10:30:00 [facility] Outpati ent Clinics Results This patient has no known results.
--- NOTE | 2020-08-18 12:43 | RAD REPORT ---
EXAM DESCRIPTION: CT - Head Brain Wo Cont - 08/18/2020 12:33 pm CLINICAL HISTORY: head injury, persistent headache 10 days after posterior head trauma COMPARISON: No comparisons TECHNIQUE: Axial 5 mm thick images of the head were obtained without IV contrast. All CT scans are performed using dose optimization technique as appropriate and may include automated exposure control or mA/KV adjustment according to patient size. FINDINGS: No intracranial hemorrhage, mass, edema or shift of mid-line structures. No acute infarcti on changes seen. No abnormal extra-axial fluid collections. Ventricles are normal. Mastoid air cells and visualized portions of the paranasal sinuses are clear. Patient has significant right deviation of the nasal septum. No acute bony findings. IMPRESSION: Negative non-contrast CT head examination for acute or significant finding.
[2020-08-18] MEDS ORDERED: METOCLOPRAMIDE 10 MG/2mL INJ ONE (13:00)
[2020-08-18] MEDS ORDERED: DIPHENHYDRAMINE 50 MG/ML VIAL ONE (13:00)
[2020-08-18] MEDS ORDERED: NA CHLORIDE 0.9% 500 ML ONE (13:00)
--- NOTE | 2020-08-18 14:14 | EDPHYS ---
Physician Documentation [facility] Name: Sharron Reyes Age: 25 yrs Sex: Female : 1995 Arrival Date: 08/18/2020 Time: 10:33 Bed 28 Private MD: ED Physician Ace Roldan HPI: 08/18 12:07 This 25 yrs old Female presents to ER via Ambulatory with complaints of jmm Headache, Dizziness. 12:07 The patient complains of pain to the left side of the back of head, left occipital jmm area, right side of the back of head and right occipital area. Onset: The symptoms/episode began/occurred acutely, 10 day(s) ago. Associated signs and symptoms: Pertinent negatives: fever, neck stiffness, paresthesias, vision loss, vomiting. This is a 25 year old female with a history of DM, hypothyroidism that presents to the ED with ongoing headache since. Patient states she did suffer from migraines which had previously resolved after an ear piercing. Headache has returned and has not resolved. . HOSPITALITY AMBASSADOR: 14:23 LMP N/A - control method ca1 Historical: - Allergies: 10:48 Wellbutrin; ll1 - PMHx: 10:48 Diabetes - NIDDM; Hypothyroidism; Bipolar disorder; High Cholesterol; ll1 - PSHx: 10:48 Cholecystectomy; ; ll1 - Immunization history:: Client reports having NOT received the Covid vaccine. Flu vaccine is not up to date. - Social history:: Smoking status: Patient denies any tobacco usage or history of. ROS: 12:07 Constitutional: Negative for fever, chills, and weight loss. jmm 12:07 Cardiovascular: Negative for chest pain, palpitations, and edema, Respiratory: Negative jmm for shortness of breath, cough, wheezing, and pleuritic chest pain. 12:07 Neuro: Positive for headache. jmm 12:07 All other systems are negative. Exam: 12:07 Head/Face: atraumatic. Eyes: EOMI, no conjunctival erythema appreciated ENT: Moist jmm Mucus Membranes Neck: Trachea midline, Supple Chest/axilla: Normal chest wall appearance and motion. Cardiovascular: Regular rate and rhythm. No edema appreciated Respiratory: Normal respirations, no respiratory distress appreciated Abdomen/GI: Non distended, soft Back: Normal ROM Skin: General appearance color normal MS/ Extremity: Moves all extremities, no obvious deformities appreciated, no edema noted to the lower extremities Neuro: Awake and alert, normal gait Psych: Behavior is normal, Mood is normal, Patient is cooperative and pleasant Vital Signs: 10:43 BP 154 / 103; Pulse 92; Resp 17; Temp 98.3; Pulse Ox 98% ; Weight 104.33 kg; Height 5 ll1 ft. 7 in. (170.18 cm); Pain 5/10; 12:05 BP 131 / 97; Pulse 81; Resp 16 S; Pulse Ox 99% on R/A; ca1 13:11 BP 122 / 78; Pulse 95; Resp 16 S; Pulse Ox 100% on R/A; ca1 14:09 BP 118 / 81; Pulse 86; Resp 16 S; Pulse Ox 100% on R/A; ca1 10:43 Body Mass Index 36.02 (104.33 kg, 170.18 cm) ll1 MDM: 12:07 Patient medically screened. [facility] 14:12 Data reviewed: vital signs, nurses notes. Counseling: I had a detailed discussion with [facility] the patient and/or guardian regarding: the historical points, exam findings, and any diagnostic results supporting the discharge/admit diagnosis, radiology results, the need for outpatient follow up, to return to the emergency department if symptoms worsen or persist or if there are any questions or concerns that arise at home. ED course: Headache mildly reduced, CT is negative. Patient advised to follow up with pcp and otherwise given strict return precautions. Patient understood and agrees with the plan of care. . 08/18 12:08 Order name: CT Head Brain wo Cont; Complete Time: 12:46 [facility] 08/18 12:08 Order name: Saline Lock; Complete Time: 12:27 [facility] Administered Medications: 12:45 Drug: NS 0.9% 500 ml Route: IV; Rate: bolus; Site: left antecubital; ca1 14:08 Follow up: Response: No adverse reaction; IV Status: Completed infusion; IV Intake: ca1 500ml 12:45 Drug: Reglan (metoCLOPramide) 10 mg Route: IVP; Site: left antecubital; ca1 14:09 Follow up: Response: No adverse reaction; Pain is decreased; Nausea is decreased ca1 14:00 Drug: TORadol (ketorolac) 30 mg Route: IVP; Site: left antecubital; ca1 14:23 Follow up: Response: No adverse reaction; Pain is decreased ca1 14:09 Not Given (Pt driving herself home): diphenhydrAMINE 12.5 mg IVP once ca1 Disposition: 17:47 Co-signature as Attending Physician, Ace Roldan MD I agree with the assessment and tw4 plan of care. Disposition: 08/18/20 14:13 Discharged to Home. Impression: Headache. - Condition is Stable. - Discharge Instructions: General Headache Without Cause, Post-Concussion Syndrome. - Prescriptions for Fiorinal 50- 325-40 mg Oral Capsule - take 1 capsule by ORAL route every 4 hours As needed - not to exceed 6 capsules per day; 20 capsule. - Medication Reconciliation Form, Thank You Letter, Antibiotic Education, Prescription Opioid Use form. - Follow up: Private Physician; When: 2 - 3 days; Reason: Recheck today's complaints, Continuance of care, Re-evaluation by your physician. Signatures: Dispatcher [employer] EDMS Juwan Vega PA PA jmm Wadley, Terrence, MD MD tw4 Ama Gann RN RN ca1 Teressa Lyon RN RN ll1 Corrections: (The following items were deleted from the chart) 14:24 14:13 08/18/2020 14:13 Discharged to Home. Impression: Headache. Condition is Stable. ca1 Forms are Medication Reconciliation Form, Thank You Letter, Antibiotic Education, Prescription Opioid Use. Follow up: Private Physician; When: 2 - 3 days; Reason: Recheck today's complaints, Continuance of care, Re-evaluation by your physician. danny
--- NOTE | 2020-08-18 14:14 | ER ---
Nurse's Notes [facility] Name: Sharron Reyes Age: 25 yrs Sex: Female : 1995 Arrival Date: 08/18/2020 Time: 10:33 Bed 28 Private MD: Diagnosis: Headache Presentation: 08/18 10:43 Chief complaint: Patient states: Tripped over dog in kitchen about 10 days ago. Landed ll1 on back of head, possible LOC, can't remember everything. Reports CONRAD, dizziness with position changes, slight nausea since. Coronavirus screen: Client denies travel out of the [place] in the last 14 days. At this time, the client does not indicate any symptoms associated with coronavirus-19. Ebola Screen: Patient denies travel to an Ebola-affected area in the 21 days before illness onset. Initial Sepsis Screen: Does the patient meet any 2 criteria? HR > 90 bpm. No. Patient's initial sepsis screen is negative. Does the patient have a suspected source of infection? Yes: Other: CONRAD. Risk Assessment: Do you want to hurt yourself or someone else? Patient reports no desire to harm self or others. Onset of symptoms was August 08, 2020. 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 Flu vaccine is not up to date. - Social history:: Smoking status: Patient denies any tobacco usage or history of. Screenin:05 Abuse screen: Denies threats or abuse. Denies injuries from another. Nutritional ca1 screening: No deficits noted. Tuberculosis screening: No symptoms or risk factors identified. Fall Risk Fall in past 12 months (25 points). Assessment: 12:05 General: Appears in no apparent distress. comfortable, Behavior is calm, cooperative, ca1 appropriate for age. Pain: Complains of pain in left parietal area, right parietal area and occipital area Pain does not radiate. Pain currently is 10 out of 10 on a pain scale. Neuro: Level of Consciousness is awake, alert, obeys commands, Oriented to person, place, time, situation. Cardiovascular: Heart tones S1 S2 present Capillary refill < 3 seconds Patient's skin is warm and dry. Respiratory: Airway is patent Respiratory effort is even, unlabored, Respiratory pattern is regular, symmetrical, Breath sounds are clear bilaterally. GI: Abdomen is round non-distended, Bowel sounds present X 4 quads. Abd is soft and non tender X 4 quads. : No signs and/or symptoms were reported regarding the genitourinary system. EENT: No signs and/or symptoms were reported regarding the EENT system. Derm: Skin is intact, is healthy with good turgor, Skin is. Musculoskeletal: Circulation, motion, and sensation intact. Capillary refill < 3 seconds. 13:11 Reassessment: Patient appears in no apparent distress at this time. Patient and/or ca1 family updated on plan of care and expected duration. Pain level reassessed. Patient is alert, oriented x 3, equal unlabored respirations, skin warm/dry/pink. 14:09 Reassessment: Patient appears in no apparent distress at this time. Patient is alert, ca1 oriented x 3, equal unlabored respirations, skin warm/dry/pink. Patient states feeling better. Vital Signs: 10:43 BP 154 / 103; Pulse 92; Resp 17; Temp 98.3; Pulse Ox 98% ; Weight 104.33 kg; Height 5 ll1 ft. 7 in. (170.18 cm); Pain 5/10; 12:05 BP 131 / 97; Pulse 81; Resp 16 S; Pulse Ox 99% on R/A; ca1 13:11 BP 122 / 78; Pulse 95; Resp 16 S; Pulse Ox 100% on R/A; ca1 14:09 BP 118 / 81; Pulse 86; Resp 16 S; Pulse Ox 100% on R/A; ca1 10:43 Body Mass Index 36.02 (104.33 kg, 170.18 cm) ll1 ED Course: 10:33 Patient arrived in ED. ds1 10:47 Triage completed. ll1 10:48 Arm band placed on. ll1 11:56 Juwan Vega PA is PHCP. [facility] 11:56 Ace Roldan MD is Attending Physician. [facility] 12:00 Ama Gann, RN is Primary Nurse. ca1 12:05 Patient has correct armband on for positive identification. Bed in low position. Call ca1 light in reach. Side rails up X 1. Pulse ox on. NIBP on. Door closed. Visitors limited. Lights dimmed. Warm blanket given. 12:27 Inserted saline lock: 20 gauge in left antecubital area, using aseptic technique. jp3 12:32 CT Head Brain wo Cont In Process Unspecified. EDMS 14:23 No provider procedures requiring assistance completed. IV discontinued, intact, ca1 bleeding controlled, No redness/swelling at site. Pressure dressing applied. Administered Medications: 12:45 Drug: NS 0.9% 500 ml Route: IV; Rate: bolus; Site: left antecubital; ca1 14:08 Follow up: Response: No adverse reaction; IV Status: Completed infusion; IV Intake: ca1 500ml 12:45 Drug: Reglan (metoCLOPramide) 10 mg Route: IVP; Site: left antecubital; ca1 14:09 Follow up: Response: No adverse reaction; Pain is decreased; Nausea is decreased ca1 14:00 Drug: TORadol (ketorolac) 30 mg Route: IVP; Site: left antecubital; ca1 14:23 Follow up: Response: No adverse reaction; Pain is decreased ca1 14:09 Not Given (Pt driving herself home): diphenhydrAMINE 12.5 mg IVP once ca1 Intake: 14:08 IV: 500ml; Total: 500ml. ca1 Outcome: 14:13 Discharge ordered by . [facility] 14:24 Discharged to home ambulatory. ca1 14:24 Condition: stable 14:24 Discharge instructions given to patient, Instructed on discharge instructions, follow up and referral plans. no drinking with medication, no driving heavy equipment, medication usage, Demonstrated understanding of instructions, follow-up care, medications, Prescriptions given X 1. 14:24 Patient left the ED. ca1 Signatures: Dispatcher [employer] EDMS Juwan Vega PA PA jmm Sanford, Demi ds1 Ibrahima Oreilly jp3 Ama Gann, RN RN ca1 Teressa Lyon RN RN ll1
[2020-08-18] MEDS ORDERED: KETOROLAC 30 MG/ML INJ ONE (14:18)
[2020-08-18 14:40] VITALS: TEMP 98.3
[2020-08-18 14:47] VITALS: O2SAT 100
[2020-08-18 14:48] VITALS: BP 118/81
== END 2020-08-18 14:24 | disposition home or self-care (01) ==
LOC: ER 10:30
DX: R51.9 Headache, unspecified (principal); E11.9 Type 2 diabetes mellitus without complications; Z88.8 Allergy status to other drugs, medicaments and biological substances
CPT/HCPCS: 70450; J2765; J1200; J7040; 96361; 96374; 96375; 99284

== ENCOUNTER 2021-06-10 06:20 | Day surgery (SDC) | payer OTHER ==
[2021-06-05 12:51] LABS: Absolute Lymphocytes (CBC) 2.7 K/uL (0.7-4.9); Hematocrit 40.9 % (36.0-45.0); Lymphocytes % 26.6 % (15.3-44.8); MPV 9.1 fL (7.6-11.3); RBC Red Blood Cell Count 4.93 M/uL (3.86-4.86)
[2021-06-05 12:54] LABS: BUN Blood Urea Nitrogen 14 mg/dL (7-18); Bicarbonate 26 mmol/L (21-32); Glucose Level 244 mg/dL (74-106); Potassium 3.9 mmol/L (3.5-5.1); Sodium Level 135 mmol/L (136-145)
--- NOTE | 2021-06-08 11:35 | EKG ---
Test Date: 2021-06-05 Test Time: 12:17:56 Analytical Data Scientist: JULIET MEASUREMENT RESULTS: Intervals: Rate: 73 MO: 142 QRSD: 92 QT: 378 QTc: 416 [place]: P: 48 MO: 142 QRS: 57 T: 53 INTERPRETIVE STATEMENTS: Normal sinus rhythm Normal ECG Compared to ECG 10/16/2016 07:03:35 Sinus arrhythmia no longer present Electronically Signed On 06-08-21 11:30:50 DIESEL FLEET MECHANIC by Fracisco Vásquez
[2021-06-10] MEDS ORDERED: NA CHLORIDE 0.9% 1,000 ML ONE (06:48)
[2021-06-10] MEDS ORDERED: BUPIVACAINE 0.5% PF 10 ML VIAL ONE (07:06)
[2021-06-10] MEDS ORDERED: dexAMETHasone 4 MG/ML VIAL ONE (07:06)
[2021-06-10 07:08] LABS: Specific Gravity >= 1.030 (1.005-1.030)
[2021-06-10] MEDS ORDERED: CELECOXIB 100 MG CAPSULE ONE (07:16)
[2021-06-10] MEDS ORDERED: ACETAMINOPHEN 500 MG TAB ONE (07:16)
[2021-06-10] MEDS ORDERED: FENTANYL CITR 100 MCG/2 ML ONE ×3 (07:28→09:24)
[2021-06-10] MEDS ORDERED: MIDAZOLAM HCL 2 MG/2 ML INJ ONE (07:28)
[2021-06-10] MEDS ORDERED: propofoL 200 MG/20 ML VIAL IV ONE ×2 (07:28→08:06)
[2021-06-10] MEDS ORDERED: LIDOCAINE 1% MPF 5 ML VIAL ONE (07:29)
[2021-06-10] MEDS ORDERED: CEFAZOLIN SODIUM 1 GM/VIAL ONE (07:53)
[2021-06-10] MEDS ORDERED: KETOROLAC 30 MG/ML INJ ONE (08:02)
[2021-06-10] MEDS ORDERED: ONDANSETRON 4 MG/2 ML VIAL ONE (08:02)
[2021-06-10] MEDS ORDERED: dexAMETHasone 10 MG/ML VIAL ONE ×2 (08:02→08:32)
--- NOTE | 2021-06-10 09:05 | RAD REPORT ---
EXAM DESCRIPTION: RAD - Foot Right 2 View - 06/10/2021 8:47 am CLINICAL HISTORY: SPUR REMOVAL COMPARISON: Foot Right 3 View dated 01/26/2021; Os Calcis (Calcaneus) Heel dated 12/05/2020 FINDINGS: There were 12 portable C-arm views submitted from a fluoroscopic assisted plantar spur rem oval. Images show stepwise localization and removal. No suspicious or unexpected imaging finding. Fluoro time was 0.4 minutes. Cumulative dose was 0.360 mGy. IMPRESSION: Fluoroscopic assisted plantar spur removal procedure as detailed.
[2021-06-10] MEDS ORDERED: HYDROCODONE/APAP 7.5/325 MG TAB ONE (09:59)
[2021-06-10 11:00] VITALS: BP 113/63; TEMP 97.3; O2SAT 96
== END 2021-06-10 10:40 | disposition home or self-care (01) ==
LOC: OR 06:20
PROVIDERS: ATTEND Podiatrist Foot & Ankle Surgery
PROC: 0KNV0ZZ Release Right Foot Muscle, Open Approach (ICD-10-PCS; principal; 2021-06-10 07:30)
DX: M77.31 Calcaneal spur, right foot (principal); Z20.822 Contact with and (suspected) exposure to COVID-19
CPT/HCPCS: 93005; 85025; 80048; 36415; 81025; 82947 ×3; 73620; 28060; U0002; J2704 ×2; J2250; J3010 ×3; J1100 ×2; J7030; J2405; J0690